=== PATIENT | male | born 1960 | race Caucasian/White ===

== ENCOUNTER 2017-01-10 22:36 | Emergency (ER) | payer OTHER ==
--- NOTE | 2017-01-11 00:31 | EDM.PDOC ---
ED HPI GENERAL MEDICAL PROBLEM - General Chief Complaint: Bite:Animal, Insect Stated Complaint: TICK Time Seen by Provider: 01/11/17 00:26 Source of Information: Reports: Patient History Limitations: Reports: No Limitations - History of Present Illness INITIAL COMMENTS - FREE TEXT/NARRATIVE: pt has regular woodtick stuck on his rt shoulder blade area. There is a lemon sized area of redness around the tick. It is quite raised. Onset: Gradual Duration: Hour(s): Location: Reports: Back Quality: Reports: Burning Associated Symptoms: Reports: Other ( tick bu the rt shoulder blade. ) - Related Data Allergies Allergy/AdvReac Type Severity Reaction Status Date / Time No Known Allergies Allergy Verified 08/06/16 07:57 Home Meds: Home Meds NK [No Known Home Meds] 07/30/16 [History] Past Medical History HEENT History: Reports: Hard of Hearing Gastrointestinal History: Reports: Other (See Below) Other Gastrointestinal History: thinks wheat causes some gas - Infectious Disease History Infectious Disease History: Reports: Chicken Pox - Past Surgical History Musculoskeletal Surgical History: Reports: Other (See Below) Social & Family History - Tobacco Use Smoking Status *Q: Never Smoker Second Hand Smoke Exposure: No - Caffeine Use Caffeine Use: Reports: Coffee, Soda, Tea - Alcohol Use Days Per Week of Alcohol Use: 1 Number of Drinks Per Day: 1 Total Drinks Per Week: 1 - Recreational Drug Use Recreational Drug Use: No - Living Situation & Occupation Occupation: Employed ED ROS GENERAL - Review of Systems Review Of Systems: See Below Constitutional: Reports: No Symptoms HEENT: Reports: No Symptoms Respiratory: Reports: No Symptoms Cardiovascular: Reports: No Symptoms Endocrine: Reports: No Symptoms GI/Abdominal: Reports: No Symptoms : Reports: No Symptoms Musculoskeletal: Reports: No Symptoms Skin: Reports: Other ( tick was stuck by the rt shoulder blade. ) Neurological: Reports: No Symptoms ED EXAM, ANIMAL BITE - Physical Exam Exam: See Below Text/Narrative:: pt has a regular tick stuck by the rt shoulder blade. Exam Limited By: No Limitations General Appearance: Alert Ears: Normal TMs Nose: Normal Inspection Throat/Mouth: Normal Inspection Head: Atraumatic Neck: Normal Inspection Respiratory/Chest: No Respiratory Distress Skin Exam: Other ( regular tick was stuck by the rt shoulder blade. ) Course - Re-Assessments/Exams Free Text/Narrative Re-Assessment/Exam: 01/11/17 00:29 the area was cleansed and the tick was removed without difficulty. There is a lemon sized red area tht is raised . Departure - Departure Time of Disposition: 00:30 Disposition: Home, Self-Care 01 Condition: Fair Clinical Impression: Tick bite of back - Discharge Information Forms: ED Department Discharge Care Plan Goals: doxycline 100mg bid ---for 5 days.moist warm packs to the area
[2017-01-11 00:39] VITALS: BP 131/71
== END 2017-01-11 00:50 | disposition home or self-care (01) ==
LOC: JP.ED 22:36
DX: S40.261A Insect bite (nonvenomous) of right shoulder, initial encounter (principal); W57.XXXA Bitten or stung by nonvenomous insect and other nonvenomous arthropods, initial encounter
CPT/HCPCS: 99283

== ENCOUNTER 2017-06-06 12:35 | Emergency (ER) | payer OTHER ==
--- NOTE | 2017-06-06 13:00 | EDM.PDOC ---
ED HPI GENERAL MEDICAL PROBLEM - General Stated Complaint: NAIL IN LT LEG Time Seen by Provider: 06/06/17 12:50 Source of Information: Reports: Patient History Limitations: Reports: No Limitations - History of Present Illness INITIAL COMMENTS - FREE TEXT/NARRATIVE: 56-year-old male was kneeling down when he accidentally shot a three-inch nail into the distal aspect of the anterior leg just above the knee. He is able to ambulate without significant difficulty, it does not appear that it is penetrated the knee. The head of the nail is embedded firmly against the distal anterior left thigh. There is no bleeding. Onset: Today Duration: Hour(s): (Within the past hour) Associated Symptoms: Reports: No Other Symptoms - Related Data Allergies Allergy/AdvReac Type Severity Reaction Status Date / Time No Known Allergies Allergy Verified 08/06/16 07:57 Home Meds: Home Meds NK [No Known Home Meds] 07/30/16 [History] Past Medical History HEENT History: Reports: Hard of Hearing Gastrointestinal History: Reports: Other (See Below) Other Gastrointestinal History: thinks wheat causes some gas - Infectious Disease History Infectious Disease History: Reports: Chicken Pox - Past Surgical History Musculoskeletal Surgical History: Reports: Other (See Below) Other Musculoskeletal Surgeries/Procedures:: elbow surgery right side Social & Family History - Tobacco Use Smoking Status *Q: Never Smoker Second Hand Smoke Exposure: No - Caffeine Use Caffeine Use: Reports: Coffee, Soda - Alcohol Use Days Per Week of Alcohol Use: 1 Number of Drinks Per Day: 1 Total Drinks Per Week: 1 - Recreational Drug Use Recreational Drug Use: No - Living Situation & Occupation Occupation: Employed ED ROS GENERAL - Review of Systems Review Of Systems: See Below Constitutional: Denies: Fever, Chills Respiratory: Denies: Shortness of Breath Cardiovascular: Denies: Chest Pain Musculoskeletal: Reports: Leg Pain Skin: Denies: Bruising ED EXAM, GENERAL - Physical Exam Exam: See Below Exam Limited By: No Limitations General Appearance: Alert, No Apparent Distress Respiratory/Chest: No Respiratory Distress Cardiovascular: Regular Rate, Rhythm Extremities: Other (Left leg shows an embedded head of the nail impaled into the distal anterior aspect of the left thigh.) Course - Vital Signs Last Recorded V/S: Last Vital Signs Temp 97.7 F 06/06/17 15:18 Pulse 90 06/06/17 15:18 Resp 17 06/06/17 15:18 BP 151/98 H 06/06/17 15:18 Pulse Ox 100 06/06/17 15:18 - Orders/Labs/Meds Orders: Active Orders 24 hr Category Date Time Status DME for Discharge [COMM] Stat Oth 06/06/17 14:42 Ordered Saline Lock Insert [OM.PC] Routine Oth 06/06/17 13:30 Ordered Meds: Medications Discontinued Medications Generic Name Dose Route Start Last Admin Trade Name Orlin PRN Reason Stop Dose Admin Bacitracin 1 dose 06/06/17 14:19 06/06/17 14:22 Bacitracin Oint 1 Gm TOP 06/06/17 14:20 1 dose ONETIME ONE Administration Cefazolin Sodium/Dextrose 2 gm 50 mls @ 100 mls/hr 06/06/17 14:30 06/06/17 14 :21 / Premix IV 06/06/17 14:59 100 mls/hr ONETIME ONE Administration Propofol Confirm 06/06/17 14:20 Diprivan 20 Ml Administered 06/06/17 14:21 Dose 400 mg .ROUTE .STK-MED ONE Sodium Chloride 10 ml 06/06/17 13:30 Saline Flush FLUSH ASDIRECTED PRN Keep Vein Open - Re-Assessments/Exams Free Text/Narrative Re-Assessment/Exam: 06/06/17 14:16 The jeans were cut around the nail. An x-ray confirmed that the nail was embedded into the distal femur. With the assistance of anesthesia, the patient was put under light anesthesia with propofol, and a large needle vregara was used to remove the nail without complications. The entry wound was flushed with 30 mL of saline. Patient was given 2 g of Ancef IV, will continue on 500 mg 3 times a day and recheck with orthopedics next Saturday. He was also given 10 hydrocodone to take as needed for pain when resting. Departure - Departure Time of Disposition: 15:40 Disposition: Home, Self-Care 01 Condition: Good Clinical Impression: Femur fracture, left Qualifiers: Encounter type: initial encounter Femur location: distal Fracture type: open Fracture morphology: unspecified fracture morphology - Discharge Information Instructions: Puncture Wound, [id number], Femoral Shaft Fracture Referrals: PCP,None [Primary Care Provider] - Forms: ED Department Discharge Care Plan Goals: Take antibiotic 3 times a day, keep wound covered and clean while healing. Increase activity as tolerated. Use ibuprofen or naproxen for pain and add stronger pain medications as directed if needed when trying to rest. Recheck with Dr. Hakeem Corrigan in the orthopedic clinic on Saturday. - My Orders Last 24 Hours: My Active Orders 06/06/17 13:30 Saline Lock Insert [OM.PC] Routine 06/06/17 14:42 DME for Discharge [COMM] Stat - Assessment/Plan Last 24 Hours: My Active Orders 06/06/17 13:30 Saline Lock Insert [OM.PC] Routine 06/06/17 14:42 DME for Discharge [COMM] Stat
[2017-06-06] MEDS ORDERED: ceFAZolin 2 GM in Premix Bag 1 BAG IV ONE ×2 (13:30→14:30)
[2017-06-06] MEDS ORDERED: Sodium Chloride 0.9% 10 ML Syringe FLUSH PRN (13:30)
--- NOTE | 2017-06-06 14:00 | CR ---
Knee 1V or 2V Lt INDICATION: evaluate foreign body FINDINGS: Metallic nail in the lateral distal femoral metaphysis.
[2017-06-06] MEDS ORDERED: Bacitracin Oint 1 GM U/D Packet TOP ONE (14:19)
[2017-06-06] MEDS ORDERED: Propofol 200 MG/20 ML SDV ONE (14:20)
[2017-06-06 15:19] VITALS: BP 151/98
== END 2017-06-06 15:42 | disposition home or self-care (01) ==
LOC: JP.ED 12:35
DX: S72.402B Unspecified fracture of lower end of left femur, initial encounter for open fracture type I or II (principal); W45.0XXA Nail entering through skin, initial encounter
CPT/HCPCS: 73560; 96365; 99284; J0690; J2704

== ENCOUNTER 2020-01-15 19:36 | Emergency (ER) | payer OTHER ==
[2020-01-15] MEDS ORDERED: Acetaminophen 500 MG Tab PO ONE (20:52)
--- NOTE | 2020-01-15 20:57 | EDM.PDOC ---
ED HPI GENERAL MEDICAL PROBLEM - General Chief Complaint: Fever Stated Complaint: FEVER,BODY ACHES Time Seen by Provider: 01/15/20 20:40 Source of Information: Reports: Patient, Old Records History Limitations: Reports: No Limitations - History of Present Illness INITIAL COMMENTS - FREE TEXT/NARRATIVE: 59 yo male presents with 2 weeks of intermittent fevers and malaise. He removed a deer tick from his back before his sx's began. He called the clinic twice about his sx's. The first time some tests were done and were negative, he thinks one of the tests was a Lyme Test and also a Covid test. The 2nd time he called they told him there was nothing they could do for him. He has not been examined during any of this. Chart review by RN of reveals only the above 2 tests were done. Onset: Gradual Onset Date: 12/30/19 Duration: Week(s): (2+), Waxing/Waning Location: Reports: Generalized Quality: Reports: Ache Severity: Mild Improves with: Reports: Medication Worsens with: Reports: Other (unknown) Context: Reports: Other (See HPI) Associated Symptoms: Reports: Fever/Chills, Headaches (mild on and off since onset of illness), Malaise. Denies: Chest Pain, Cough, Nausea/Vomiting, Rash, Shortness of Breath Treatments BANQUET LEAD: Reports: Other (see below) (none in last 6 hrs) - Related Data Allergies Allergy/AdvReac Type Severity Reaction Status Date / Time No Known Allergies Allergy Verified 08/06/16 07:57 Home Meds: Home Meds Doxycycline [Vibra-Tabs] 100 mg PO Q12HR #20 tab 01/15/20 [Rx] Past Medical History HEENT History: Reports: Hard of Hearing Gastrointestinal History: Reports: Other (See Below) Other Gastrointestinal History: thinks wheat causes some gas - Infectious Disease History Infectious Disease History: Reports: Chicken Pox - Past Surgical History Musculoskeletal Surgical History: Reports: Other (See Below) Other Musculoskeletal Surgeries/Procedures:: elbow surgery right side Social & Family History - Caffeine Use Caffeine Use: Reports: None - Living Situation & Occupation Occupation: Employed ED ROS GENERAL - Review of Systems Review Of Systems: See Below Constitutional: Reports: Fever, Chills, Malaise HEENT: Reports: No Symptoms Respiratory: Reports: No Symptoms Cardiovascular: Reports: No Symptoms GI/Abdominal: Reports: No Symptoms : Reports: No Symptoms Musculoskeletal: Reports: No Symptoms Skin: Reports: No Symptoms Neurological: Reports: Headache ED EXAM, SEPSIS - Physical Exam Exam: See Below Exam Limited By: No Limitations General Appearance: Alert, WD/WN, No Apparent Distress Eye Exam: Bilateral Eye: Normal Inspection Ears: Normal External Exam, Normal Canal, Hearing Grossly Normal, Normal TMs Nose: Normal Inspection, No Blood Throat/Mouth: Normal Inspection, Normal Lips, Normal Oropharynx, Normal Voice, No Airway Compromise Head: Atraumatic, Normocephalic Neck: Normal Inspection, Limited Range of Motion (due to chronic arthritis). No: Lymphadenopathy (R), Lymphadenopathy (L) Respiratory/Chest: No Respiratory Distress, Lungs Clear, Normal Breath Sounds, No Accessory Muscle Use Cardiovascular: Regular Rate, Rhythm, No Edema, Tachycardia GI/Abdominal Exam: Normal Bowel Sounds, Soft, Non-Tender, No Distention Back: Normal Inspection. No: CVA Tenderness (R), CVA Tenderness (L) Extremities: Normal Inspection, Normal Range of Motion, Non-Tender, No Pedal Edema Neurological: Alert, Oriented, CN II-XII Intact, Normal Cognition, No Motor/Sen anthony Deficits Psychiatric: Normal Affect, Normal Mood Skin: Warm, Dry, Intact, Normal Color, No Rash Lymphatic: Bilateral: No Adenopathy Course - Vital Signs Last Recorded V/S: Last Vital Signs Temp 37.6 C 01/15/20 21:49 Pulse 112 H 01/15/20 21:49 Resp 16 01/15/20 21:49 BP 131/80 01/15/20 21:49 Pulse Ox 95 01/15/20 21:49 - Orders/Labs/Meds Orders: Active Orders 24 hr Category Date Time Status BABESIA MICROTI ANTIBODY PANEL Routine Lab 01/15/20 21:15 Received HUMAN GRANULOCYTIC ANITA-HGE Routine Lab 01/15/20 21:15 Received Labs: Laboratory Tests 01/15/20 01/15/20 01/15/20 Range/Units 21:15 21:15 21:15 WBC 7.5 (4.5-11.0) K/uL RBC 4.31 (4.30-5.90) M/uL Hgb 12.9 (12.0-15.0) g/dL Hct 39.2 L (40.0-54.0) % MCV 91 (80-98) fL MCH 30 (27-31) pg MCHC 33 (32-36) % Plt Count 102 L (150-400) K/uL Neut % (Auto) 76 H (36-66) % Lymph % (Auto) 17 L (24-44) % Nolan % (Auto) 7 H (2-6) % Eos % (Auto) 0 L (2-4) % Baso % (Auto) 0 (0-1) % Sodium 134 L (140-148) mmol/L Potassium 3.9 (3.6-5.2) mmol/L Chloride 100 (100-108) mmol/L Carbon Dioxide 26 (21-32) mmol/L Anion Gap 11.9 (5.0-14.0) mmol/L BUN 11 (7-18) mg/dL Creatinine 1.0 (0.8-1.3) mg/dL Est Cr Clr Drug Dosing 87.30 mL/min Estimated GFR (MDRD) > 60 (>60) Glucose 116 H (74-106) mg/dL Lactic Acid 0.7 (0.4-2.0) mmol/L Calcium 7.9 L (8.5-10.1) mg/dL Total Bilirubin 0.6 (0.2-1.0) mg/dL AST 32 (15-37) U/L ALT 54 (12-78) U/L Alkaline Phosphatase 84 (46-116) U/L Total Protein 6.7 (6.4-8.2) g/dL Albumin 3.1 L (3.4-5.0) g/dL Globulin 3.6 H (2.3-3.5) g/dL Albumin/Globulin Ratio 0.9 L (1.2-2.2) Meds: Medications Discontinued Medications Generic Name Dose Route Start Last Admin Trade Name Freq PRN Reason Stop Dose Admin Acetaminophen 1,000 mg 01/15/20 20:52 01/15/20 21:34 Tylenol Extra Strength PO 01/15/20 20:53 1,000 mg ONETIME ONE Administration Doxycycline Hyclate 100 mg 01/15/20 21:54 Vibramycin PO 01/15/20 21:55 ONETIME STA Departure - Departure Time of Disposition: 22:05 Disposition: Home, Self-Care 01 Condition: Fair Clinical Impression: Infection - Discharge Information *PRESCRIPTION DRUG MONITORING PROGRAM REVIEWED*: Not Applicable *COPY OF PRESCRIPTION DRUG MONITORING REPORT IN PATIENT LUCIO: Not Applicable Prescriptions: Doxycycline [Vibra-Tabs] 100 mg PO Q12HR #20 tab Instructions: Tick Bite Information, Adult Referrals: PCP,None [Primary Care Provider] - Forms: ED Department Discharge Additional Instructions: Take doxycycline every 12 hrs. Avoid taking it with anything that contains calcium for 2 hrs before or after. Take acetaminophen up to 1000 mg every 6 hrs for pain or fever control. Drink ample fluids. Recheck in the clinic later this next week, return if worse. Sepsis Event Note (ED) - Focused Exam Vital Signs: Vital Signs Temp Pulse Resp BP Pulse Ox 01/15/20 21:49 37.6 C 112 H 16 131/80 95 01/15/20 21:43 37.6 C 112 H 16 131/80 95 01/15/20 20:18 37.7 C 125 H 18 128/72 96 - My Orders Last 24 Hours: My Active Orders 01/15/20 21:15 BABESIA MICROTI ANTIBODY PANEL Routine HUMAN GRANULOCYTIC ANITA-HGE Routine - Assessment/Plan Last 24 Hours: My Active Orders 01/15/20 21:15 BABESIA MICROTI ANTIBODY PANEL Routine HUMAN GRANULOCYTIC ANITA-HGE Routine
[2020-01-15 21:45] VITALS: BP 131/80; PULSE 112
[2020-01-15] MEDS ORDERED: Doxycycline 100 MG Cap PO STA (21:54)
[2020-01-20 14:11] LABS: HGE IGG TITER Negative (Neg:<1:64); HGE IGM TITER Negative (Neg:<1:20)
[2020-01-20 17:11] LABS: BABESIA MICROTI IGG <1:10 (Neg:<1:10); BABESIA MICROTI IGM <1:10 (Neg:<1:10)
== END 2020-01-15 22:25 | disposition home or self-care (01) ==
LOC: JP.ED 19:36
DX: B99.9 Unspecified infectious disease (principal)
CPT/HCPCS: 36415; 80053; 83605; 85025; 86666; 86753; 99283; A9270